=== PATIENT | female | born 1985 | race Caucasian/White ===

== ENCOUNTER 2016-12-10 07:56 | Outpatient (CLI) | payer BC, OTHER ==
--- NOTE | 2016-12-10 13:10 | NM ---
HEPATOBILIARY SCAN: Date: 12/10/16 HISTORY: Right upper quadrant pain, recent normal ultrasound. RADIOPHARMACEUTICAL: 5.3 mCi technetium-99m mebrofenin injected intravenous. FINDINGS: There is good contrast extraction by the liver with prompt excretion into the biliary tract and norm al filling of the gallbladder. The calculated gallbladder ejection fraction following an oral fatty meal measures 82%. Tracer excretion in the small bowel loops is seen after the administration of the meal. IMPRESSION: Normal exam. POS: GARETHH
== END 2016-12-10 07:57 | disposition home or self-care (01) ==
LOC: NM 07:56
PROVIDERS: ATTEND Family Medicine
DX: R10.11 Right upper quadrant pain (principal)
CPT/HCPCS: 78227; A9537